=== PATIENT | male | born 1970 | race Caucasian/White ===

== ENCOUNTER 2024-06-23 18:21 | Emergency (ER) | payer OTHER, SELFPAY ==
--- NOTE | 2024-06-23 19:03 | ED.EYEPROB ---
HPI - Eye Problem General Chief complaint: Eye Problems Stated complaint: eye discomfort, ?fb, happened at work Time Seen by Provider: 06/23/24 21:16 Source: patient Mode of arrival: ambulatory Limitations: no limitations History of Present Illness ED Provider: yuval WIGGINS Narrative: Patient is pretty was working last week at work on 06/18 dirty fluid came out when she applied pressure on the plastic and splashed on his face immediately washed his face but still having irritation getting worse for last 24 hours no pus discharge no diplopia or vision loss Related Data Previous Rx's ?Medication ?Instructions ?Recorded tobramycin 0.3 % eye drops 1 drp ophthalmic (eye) Q4H #5 mL 06/23/24 Allergies Allergy/AdvReac Type Severity Reaction Status Date / Time No Known Allergies Allergy Verified 06/23/24 19:08 Review of Systems Review of Systems: Yes all other systems are reviewed and are negative [facility] Social History Social History Advance Directives: No Advance Directives Information Provided: Yes Physical Exam Vital Signs: Vital Signs: Last Vital Signs Temp 98.6 F 06/24/24 00:11 Pulse 85 06/24/24 00:11 Resp 18 06/24/24 00:11 BP 129/83 06/24/24 00:11 Pulse Ox 97 06/24/24 00:11 O2 Del Method Room Air 06/24/24 00:11 BMI result Body Mass Index 36.6 Appearance: Alert. Oriented X3. No acute distress. Eyes: PERRLA, No Nystagmus bilateral injected conjunctiva fluorescein uptake negative no corneal abrasion ENT: Pharynx normal. Oral Mucosa moist Neck: Normal inspection. Neck supple. CVS: Normal heart rate and rhythm. Pulses normal. Respiratory: No respiratory distress. Equal air entry bilateral, no wheezing/rales/rhonchi Abdomen: Soft and nontender. Bowel sounds are present, no mass palpable, no CVA tenderness Skin: Skin warm and dry. Normal skin color. Normal skin turgor. Extremities: No lower extremity edema. No calf tenderness Neuro: Oriented X 3. No motor deficit. No sensory deficit.No cerebellar signs , cranial nerves II-XII intact Course Course Course Narrative: This is a Rapid Medical Examination (RME) performed by Chuck Hernandez PA-C in triage. Full HPI, ROS, assessment and treatment plan per primary provider in the Main ED. 54 yo Peruvian speaking male presents to the ER for evaluation of eye pain with possible foreign body on 06/19. 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 He has itching, photophobia, red eyes. Pain is overall improving. No vision changes. Has been using Visine drops. Injected eyes in triage. Plan: tetracaine, fluorosceine exam Medications Administered Discontinued Medications Generic Name Dose Route Start Last Admin Trade Name Fausto PRN Reason Stop Dose Admin Fluorescein Sodium 2 strip 06/23/24 19:07 06/23/24 21:02 Fluorescein Sodium Strip EYE-BOTH 06/23/24 19:08 2 strip ONCE ONE Administration Tetracaine HCl 1 drop 06/23/24 19:07 06/23/24 21:02 Tetracaine Hcl/Pf 0.5% Oph Vaishali 4 Ml Drops EYE-BOTH 06/23/24 19:08 1 drop ONCE ONE Administration Tobramycin Sulfate 2 drop 06/23/24 22:04 06/23/24 22:33 Tobramycin Sulfate 0.3% Vaishali Op 5 Ml Btl EYE-BOTH 06/23/24 22:05 2 drop ONCE ONE Administration Medical Decision Making Medical Decision Making MDM Narrative: Patient with bacterial conjunctivitis likely after infected fluid went to his eyes will prescribe tobramycin Differential Diagnosis Differential Diagnoses: The differential diagnosis associated with the presentation includes Conjunctivitis/right Lab Data Labs: Lab Results 06/23/24 Range/Units 22:41 Urine Opiates Screen Not Detected (Not Detect) Ur Buprenorphine Scrn Not Detected (Not Detect) ng/mL Ur Oxycodone Screen Not Detected (Not Detect) ng/mL Urine Methadone Screen Not Detected (Not Detect) ng/mL Urine Fentanyl Screen Not Detected (Not Detect) Ur Barbiturates Screen Not Detected (Not Detect) Ur Phencyclidine Scrn Not Detected (Not Detect) Ur Amphetamines Screen Not Detected (Not Detect) U Benzodiazepines Scrn Not Detected (Not Detect) Urine Cocaine Screen Not Detected (Not Detect) U Marijuana (THC) Screen Not Detected (Not Detect) Discharge Plan Discharge Clinical Impression: Bacterial conjunctivitis Patient Disposition: Home, Self-Care Instructions: Conjunctivitis (ED) Additional Instructions: Use eyedrops as prescribed till clear Prescriptions: New tobramycin 0.3 % drops 1 drp ophthalmic (eye) Q4H Qty: 5 0RF Stand Alone Forms: Work/School Release Interventions: ED Discharge Assessment Last Done: 06/24/24 00:11 Discharge Date/Time: 06/24/24 00:13 Print Language: Peruvian
[2024-06-23 19:04] VITALS: BP 129/83; PULSE 85; RESP 18; TEMP 37; O2SAT 97; BMI 36.6
[2024-06-23] MEDS: Tetracaine HCl/PF 0.5% Oph Sol 4 ML DROPS 1 DROP EYE-BOTH (21:02)
[2024-06-23] MEDS: Fluorescein Sodium STRIP 2 STRIP EYE-BOTH (21:02)
[2024-06-23] MEDS: Tobramycin Sulfate 0.3% Sol Op 5 ML BTL 2 DROP EYE-BOTH (22:33)
--- NOTE | 2024-06-23 23:04 | PC.NURSE ---
report given to Gustavo RN
[2024-06-23 23:47] LABS: Amphetamine Screen Urine Not Detected (Not Detect); Barbiturates, Urine Not Detected (Not Detect); Benzodiazepines Screen Urine Not Detected (Not Detect); Buprenorphine Scr Not Detected (Not Detect); Cannabinoid Screen Urine Not Detected (Not Detect); Cocaine Screen Urine Not Detected (Not Detect); Fentanyl, urine Not Detected (Not Detect); Methadone Screen, Urine Not Detected (Not Detect); Opiate Screen Urine Not Detected (Not Detect); Oxycodone Screen Urine Not Detected (Not Detect); Phencyclidine Screen Urine Not Detected (Not Detect)
[2024-06-24 00:11] VITALS: BP 129/83; PULSE 85; RESP 18; TEMP 37; O2SAT 97
== END 2024-06-24 00:13 | disposition home or self-care (01) ==
PROVIDERS: Emergency Provider Internal Medicine
DX: Z04.2 Encounter for examination and observation following work accident (principal); H10.9 Unspecified conjunctivitis; Z79.899 Other long term (current) drug therapy
CPT/HCPCS: 80307; 99283